=== PATIENT | male | born 1960 | race Caucasian/White ===

== ENCOUNTER → 2021-10-04 | Outpatient (CLI) | payer OTHER, SELFPAY ==
--- NOTE | 2021-10-04 14:47 | CT_ITS ---
STUDY: CT CHEST WITH CONTRAST REASON FOR EXAM: Male, 60 years old. CHEST WALL MASS RADIATION DOSAGE (If Supplied By Facility): CTDIvol = ( 16.14 ) mGy, DLP = ( 646.17 ) mGycm TECHNIQUE: Transaxial imaging was performed following intravenous administration of IV 100mL Isovue-300. Multiplanar coronal and sagittal images were reformatted. Individualized dose optimization techniques were used for this CT. COMPARISON: No relevant priors. FINDINGS: CHEST Emphysematous changes. Multiple bilateral small bulla formation. There is no demonstrated pleural abnormality. There are calcifications of the coronary arteries. Normal mediastinum. Calcified right hilar lymph nodes. Normal unenhanced pulmonary arteries. Normal aorta arch and descending thoracic aorta. Normal osseous structures. There is no demonstrated abnormality of the visualized upper abdomen. CT/Chest WITH Contrast IMPRESSION: Emphysematous changes. No mass seen. Electronically Signed: Devang Friedman MD at 15:26 EDT ,
== END | disposition home or self-care (01) ==
LOC: CT 14:41
PROVIDERS: PCP Family Medicine; Referring Provider Family Medicine; Visit Provider Family Medicine
DX: R22.2 Localized swelling, mass and lump, trunk (principal); M89.319 Hypertrophy of bone, unspecified shoulder
CPT/HCPCS: 71260; Q9967

== ENCOUNTER → 2021-11-13 | Outpatient (CLI) | payer OTHER, SELFPAY ==
--- NOTE | 2021-11-13 17:20 | RAD_ITS ---
STUDY: X-RAY - ORBITS REASON FOR EXAM: Male, 61 years old. PRE MRI CLEARANCE TECHNIQUE: 2 view(s) of the orbits were obtained. COMPARISON: None. FINDINGS: Normal bilateral orbits without a metallic orbital foreign body. Normal visualized facial bones. Normal paranasal sinuses. The soft tissue structures are unremarkable. RAD/Orbits for Foreign Body IMPRESSION: No demonstrated metallic orbital foreign body. The patient is cleared for an MRI examination. Electronically Signed: Leeroy Mendoza MD at 17:33 EDT ,
--- NOTE | 2021-11-13 17:30 | MRI_ITS ---
EXAM: MR CHEST WITHOUT AND WITH INTRAVENOUS CONTRAST CLINICAL INDICATION: Enlargement of RT SC joint TECHNIQUE: Multiplanar magnetic resonance images of the chest without and with intravenous contrast. This report was created using [employer] report generation technology. CONTRAST: 15ML IV CLARISCAN COMPARISON: Ct done Oct 04 2021 3:02pm report only. FINDINGS: LUNGS: Unremarkable. No mass. No consolidation. PLEURAL SPACE: Unremarkable. No pneumothorax. No significant effusion. HEART: Unremarkable. No cardiomegaly. No significant pericardial effusion. MEDIASTINUM: Unremarkable. No mass. BONES/JOINTS: Enlargement of the right sternoclavicular joint as compared to the left. Overlying fluid is noted suggesting possible costochondritis. No acute fracture. No dislocation. SOFT TISSUES: See above. VASCULATURE: Unremarkable. No thoracic aortic aneurysm. LYMPH NODES: Unremarkable. No enlarged lymph nodes. MRI/Chest W/WO Contrast IMPRESSION: Enlargement of the right sternoclavicular joint as compared to the left. Overlying fluid is noted suggesting possible costochondritis. Electronically Signed: Bear Weber MD at 18:54 EDT ,
[2021-11-14 07:36] LABS: EGFR FINGERSTICK 60 mL/min (>60)
== END | disposition home or self-care (01) ==
PROVIDERS: PCP Family Medicine
DX: M25.811 Other specified joint disorders, right shoulder (principal)
CPT/HCPCS: 70030; 71552; A9575